=== PATIENT | female | born 1960 | race Caucasian/White ===

== ENCOUNTER 2016-11-11 17:19 | Emergency (ER) | payer OTHER ==
[~2016-11-11] VITALS: Ht 160 cm; Wt 79.5 kg
[~2016-11-11 17:19] MED LIST: ACETAMINOPHEN-1 EAC1 PO; CLINDAMYCIN HC300 MG PO; DOXYCYCLINE IR-40 MG PO; DYNAPEN 250 MG250 MG PO; FLONASE16 G1 BOTH NARES; GABAPENTIN400 MG PO; HYDROCODON-ACE1 EAC7 PO; INSULIN; LANTUS 10100 UNITS/ SC; LEVEMIR FL100 UNIT/1 SC; LISINOPRIL10 MG PO; NOVOLOG 10100 UNITS/ SC; NOVOLOG PE100 UNITS/ SC; PANTOPRAZOLE SO40 MG PO; PERCOCET 5/31 TABLET PO; PRAVASTATIN SOD80 MG PO; TANZEUM30 MG/0.5 SC; TYLENOL REGULA325 MG PO; ZOCOR20 MG PO
[2016-11-11] MEDS ORDERED: NORCO 5/3251 TABLET PO (19:46)
[2016-11-11 20:27] VITALS: BP 149/94
== END 2016-11-11 20:29 | disposition home or self-care (01) ==
LOC: EME 17:19 → EXP 17:19
DX: S80.01XA Contusion of right knee, initial encounter (principal); W19.XXXA Unspecified fall, initial encounter; Y93.K1 Activity, walking an animal; E11.40 Type 2 diabetes mellitus with diabetic neuropathy, unspecified; Z87.891 Personal history of nicotine dependence; Z79.4 Long term (current) use of insulin
CPT/HCPCS: 73564; 99281; 99283

== ENCOUNTER 2017-07-13 15:45 | Emergency (ER) | payer OTHER ==
[~2017-07-13] VITALS: Ht 160 cm; Wt 76.2 kg
[~2017-07-13 15:45] MED LIST changes: +NORCO 5/3251 TABLET PO
[2017-07-13 16:33] LABS: CARBON DIOXIDE (BICARBONATE) 25.1 MEQ/L (20-31); HEMATOCRIT 44.8 % (36.0-46.0); HEMOGLOBIN 15.7 G/DL (11.9-15.5); MCV 82.8 FL (83-99); PLATELET COUNT 263 K/uL (156-360); RBC DIS.WIDTH-CV 13.2 % (11.8-14.6); RBC DIS.WIDTH-SD 39.5 % (39-53); RED BLOOD COUNT 5.41 M/uL (3.80-5.20)
[2017-07-13 16:48] LABS: CHLORIDE 100 mEq/L (99-109); POTASSIUM 4.3 mEq/L (3.7-5.4); SODIUM 136 mEq/L (136-147)
[2017-07-13 16:53] LABS: GFR ESTIMATE (CALCULATED) > 59 mL/min/
[2017-07-13 16:54] LABS: UREA NITROGEN (BUN) 8 mg/dL (9-23)
[2017-07-13 17:02] LABS: GLUCOSE 799 mg/dL (70-99)
[2017-07-13 17:08] LABS: APPEARANCE CLEAR ((CLEAR)); BILIRUBIN NEGATIVE; BLOOD NEGATIVE; COLOR COLORLESS ((YELLOW)); GLUCOSE (STRIP) >=500; KETONES NEGATIVE; LEUKOCYTES NEGATIVE; NITRITE NEGATIVE; PROTEIN (STRIP) NEGATIVE; SPECIFIC GRAVITY 1.032 (1.000-1.030); UCUL ADDED? NO; UROBILINOGEN 0.2 MG/DL (0.2-1.0)
[2017-07-13 19:48] VITALS: BP 156/95
== END 2017-07-13 20:02 | disposition home or self-care (01) ==
LOC: EME 15:45
PROVIDERS: Emergency Medicine
DX: E11.65 Type 2 diabetes mellitus with hyperglycemia (principal); Z79.4 Long term (current) use of insulin; R11.2 Nausea with vomiting, unspecified; R10.9 Unspecified abdominal pain; Z87.891 Personal history of nicotine dependence
CPT/HCPCS: 80048; 81003; 82803; 82948; 85027; 99281; 99285; J7030